=== PATIENT | female | born 1965 | race Caucasian/White ===

== ENCOUNTER 2022-02-02 07:01 | Emergency (ER) | payer SELFPAY ==
[~2022-02-02] VITALS: Ht 160 cm; Wt 50.0 kg
[2022-02-02 07:31] VITALS: BP 140/91
[2022-02-02 07:45] LABS: HEMATOCRIT 44.3 % (37.0-47.0); HEMOGLOBIN 14.3 g/dl (12.0-16.0); IMMATURE GRANULOCYTES 0.3 % (0.0-5.0); MEAN CORPUSCULAR HGB 33.6 pG CALC (26.0-32.0); MEAN CORPUSCULAR HGB CONC 32.3 g/dL CAL (32.0-36.0); NEUT# 5.13 thou/uL (2.00-7.15); RED BLOOD COUNT 4.25 mill/uL (4.20-5.60); RED CELL DISTRI WIDTH 12.7 % (11.5-15.5)
[2022-02-02 07:48] LABS: MEAN CELL VOLUME 104.2 fL CALC (80.0-100.0)
[2022-02-02 08:00] VITALS: BP 113/88
[2022-02-02] MEDS ORDERED: ANUCORT-HC25 M1 RE ×2 (08:52→11:16)
[2022-02-02 09:00] VITALS: BP 128/79
[2022-02-02 09:02] LABS: ALBUMIN 4.5 g/dL (3.2-5.0); ALKALINE PHOSPHATASE 81 u/l (38-126); BUN 10 mg/dL (7-17); BUN/CREATININE RATIO 25 (12-20 (CALC)); CHLORIDE 104 mmol/l (95-108); CREATININE 0.4 mg/dL (0.5-1.0); GFR FOR AFR.AMER. > 60 ML/MIN (>=60 (CALC)); GFR OTHER RACES > 60 ML/MIN (>=60 (CALC)); POTASSIUM 4.1 mmol/l (3.5-5.1); SGOT/AST 91 u/l (14-36); SODIUM 138 mmol/l (137-146); TOTAL PROTEIN 8.5 g/dL (6.3-8.2)
[2022-02-02 09:04] LABS: ANION GAP 14 (6-22 (CALC)); BILIRUBIN, TOTAL 0.4 mg/dL (0.0-1.4); CARBON DIOXIDE 24 mmol/l (22-30)
[2022-02-02 09:40] VITALS: BP 128/79
== END 2022-02-02 09:40 | disposition home or self-care (01) | DRG 395 ==
LOC: ED 07:01
PROVIDERS: Family Medicine
DX: K64.8 Other hemorrhoids (principal); M72.0 Palmar fascial fibromatosis [Dupuytren]; M41.9 Scoliosis, unspecified

== ENCOUNTER 2022-03-26 08:58 | Day surgery (SDC) | payer SELFPAY ==
[~2022-03-26] VITALS: Ht 160 cm; Wt 53.1 kg
[~2022-03-26 08:58] MED LIST: ANUCORT-HC25 M1 RE
[2022-03-26 11:55] VITALS: BP 142/85
== END 2022-03-26 12:23 | disposition home or self-care (01) | DRG 395 ==
LOC: ENDO 08:58
PROVIDERS: ATTEND Surgery
PROC: 0DBN8ZX Excision of Sigmoid Colon, Via Natural or Artificial Opening Endoscopic, Diagnostic (ICD-10-PCS; principal; 2022-03-26)
PROC: 3E0H8GC Introduction of Other Therapeutic Substance into Lower GI, Via Natural or Artificial Opening Endoscopic (ICD-10-PCS; 2022-03-26)
DX: D12.5 Benign neoplasm of sigmoid colon (principal); K64.2 Third degree hemorrhoids
CPT/HCPCS: C9290

== ENCOUNTER 2022-03-31 20:21 | Inpatient (IN) | payer SELFPAY ==
[2022-03-31] VITALS (13 sets, daily range): BP systolic 90–181; BP diastolic 48–98
[~2022-03-31] VITALS: Ht 160 cm; Wt 53.2 kg
[2022-03-31 20:57] LABS: IMMATURE GRANULOCYTES 0.4 % (0.0-5.0); MEAN CELL VOLUME 105.1 fL CALC (80.0-100.0); MEAN CORPUSCULAR HGB 34.8 pG CALC (26.0-32.0); MEAN CORPUSCULAR HGB CONC 33.1 g/dL CAL (32.0-36.0); NEUT# 4.16 thou/uL (2.00-7.15); RED BLOOD COUNT 2.93 mill/uL (4.20-5.60); RED CELL DISTRI WIDTH 13.6 % (11.5-15.5)
[2022-03-31 20:59] LABS: HEMATOCRIT 30.8 % (37.0-47.0); HEMOGLOBIN 10.2 g/dl (12.0-16.0)
[2022-03-31 21:08] LABS: URINE BILIRUBIN - DIPSTICK NEGATIVE (NEGATIVE); URINE BLOOD DIPSTICK NEGATIVE (NEGATIVE); URINE COLOR YELLOW; URINE GLUCOSE - DIPSTICK 100 mg/dL (NEGATIVE); URINE KETONE 40 mg/dL (NEGATIVE); URINE PROTEIN - DIPSTICK NEGATIVE (NEG-TRACE); URINE SPECIFIC GRAVITY >=1.030; URINE UROBILINOGEN - DIPSTICK 0.2 E.U./dL (0.2)
[2022-03-31 21:09] LABS: ALBUMIN 4.3 g/dL (3.2-5.0); ALKALINE PHOSPHATASE 120 u/l (38-126); BUN 5 mg/dL (7-17); BUN/CREATININE RATIO 11 (12-20 (CALC)); CHLORIDE 105 mmol/l (95-108); CREATININE 0.4 mg/dL (0.5-1.0); ETHYL ALCOHOL 0 mg/dl (0-30); GFR FOR AFR.AMER. > 60 ML/MIN (>=60 (CALC)); GFR OTHER RACES > 60 ML/MIN (>=60 (CALC)); MAGNESIUM 1.6 mg/dL (1.6-2.3); POTASSIUM 3.5 mmol/l (3.5-5.1); SGOT/AST 151 u/l (14-36); SODIUM 141 mmol/l (137-146); TOTAL PROTEIN 7.4 g/dL (6.3-8.2)
[2022-03-31 21:13] LABS: URINE LEUK ESTERASE SMALL (NEGATIVE); URINE NITRITE - DIPSTICK NEGATIVE (Negative)
[2022-03-31 21:19] LABS: ANION GAP 25 (6-22 (CALC)); BILIRUBIN, TOTAL 0.7 mg/dL (0.0-1.4); CARBON DIOXIDE 15 mmol/l (22-30)
[2022-03-31 21:21] LABS: URINE RBC 0-2 RBC/hpf (0-5); URINE SQUAMOUS EPITHELIAL CELL FEW EPI/hpf (0-FEW)
[2022-04-01] VITALS (93 sets, daily range): BP systolic 78–176; BP diastolic 54–116
[2022-04-01 05:44] LABS: HEMATOCRIT 29.2 % (37.0-47.0); HEMOGLOBIN 9.6 g/dl (12.0-16.0); IMMATURE GRANULOCYTES 0.5 % (0.0-5.0); MEAN CELL VOLUME 105.8 fL CALC (80.0-100.0); MEAN CORPUSCULAR HGB 34.8 pG CALC (26.0-32.0); MEAN CORPUSCULAR HGB CONC 32.9 g/dL CAL (32.0-36.0); NEUT# 6.83 thou/uL (2.00-7.15); RED BLOOD COUNT 2.76 mill/uL (4.20-5.60); RED CELL DISTRI WIDTH 13.4 % (11.5-15.5)
[2022-04-01 06:00] LABS: ALBUMIN 3.9 g/dL (3.2-5.0); ALKALINE PHOSPHATASE 103 u/l (38-126); ANION GAP 16 (6-22 (CALC)); BILIRUBIN, TOTAL 1.3 mg/dL (0.0-1.4); BUN 5 mg/dL (7-17); BUN/CREATININE RATIO 11 (12-20 (CALC)); CARBON DIOXIDE 19 mmol/l (22-30); CHLORIDE 109 mmol/l (95-108); CREATININE 0.4 mg/dL (0.5-1.0); GFR FOR AFR.AMER. > 60 ML/MIN (>=60 (CALC)); GFR OTHER RACES > 60 ML/MIN (>=60 (CALC)); POTASSIUM 2.9 mmol/l (3.5-5.1); SGOT/AST 400 u/l (14-36); SODIUM 141 mmol/l (137-146); TOTAL PROTEIN 6.9 g/dL (6.3-8.2)
[2022-04-01] MEDS ORDERED: TYLENOL PM PO (12:04)
[2022-04-01 15:12] LABS: ALBUMIN 4.2 g/dL (3.2-5.0); BILIRUBIN, TOTAL 1.8 mg/dL (0.0-1.4); BUN 4 mg/dL (7-17); BUN/CREATININE RATIO 9 (12-20 (CALC)); CREATININE 0.4 mg/dL (0.5-1.0); DIRECT BILIRUBIN 0.1 mg/dl (0.0-0.3); GFR FOR AFR.AMER. > 60 ML/MIN (>=60 (CALC)); GFR OTHER RACES > 60 ML/MIN (>=60 (CALC)); TOTAL PROTEIN 7.6 g/dL (6.3-8.2)
[2022-04-01 15:37] LABS: ALKALINE PHOSPHATASE 83 u/l (38-126)
[2022-04-01 15:40] LABS: CARBON DIOXIDE 18 mmol/l (22-30)
[2022-04-01 17:04] LABS: ANION GAP 17 (6-22 (CALC)); CHLORIDE 101 mmol/l (95-108); POTASSIUM 2.6 mmol/l (3.5-5.1); SODIUM 133 mmol/l (137-146)
[2022-04-01 17:05] LABS: SGOT/AST 913 u/l (14-36)
[2022-04-02] VITALS (23 sets, daily range): BP systolic 97–156; BP diastolic 59–102
[2022-04-02 05:13] LABS: HEMATOCRIT 29.5 % (37.0-47.0); IMMATURE GRANULOCYTES 0.2 % (0.0-5.0); MEAN CELL VOLUME 103.5 fL CALC (80.0-100.0); MEAN CORPUSCULAR HGB 35.1 pG CALC (26.0-32.0); MEAN CORPUSCULAR HGB CONC 33.9 g/dL CAL (32.0-36.0); NEUT# 7.54 thou/uL (2.00-7.15); RED BLOOD COUNT 2.85 mill/uL (4.20-5.60); RED CELL DISTRI WIDTH 13.4 % (11.5-15.5)
[2022-04-02 05:23] LABS: INTERNATIONAL NORMALIZED RATIO 2.9 RATIO (0.7-1.3); PROTHROMBIN TIME 27.4 SECONDS (9.0-12.5)
[2022-04-02 05:25] LABS: ALBUMIN 3.8 g/dL (3.2-5.0); ALKALINE PHOSPHATASE 118 u/l (38-126); BILIRUBIN, TOTAL 2.2 mg/dL (0.0-1.4); BUN 3 mg/dL (7-17); BUN/CREATININE RATIO 5 (12-20 (CALC)); CARBON DIOXIDE 17 mmol/l (22-30); CHLORIDE 109 mmol/l (95-108); CREATININE 0.5 mg/dL (0.5-1.0); GFR FOR AFR.AMER. > 60 ML/MIN (>=60 (CALC)); GFR OTHER RACES > 60 ML/MIN (>=60 (CALC)); SODIUM 137 mmol/l (137-146)
[2022-04-02 05:28] LABS: ALBUMIN 3.7 g/dL (3.2-5.0); ALKALINE PHOSPHATASE 119 u/l (38-126); BILIRUBIN, TOTAL 2.2 mg/dL (0.0-1.4); TOTAL PROTEIN 6.9 g/dL (6.3-8.2)
[2022-04-02 05:35] LABS: ANION GAP 14 (6-22 (CALC)); MAGNESIUM 2.2 mg/dL (1.6-2.3); POTASSIUM 3.2 mmol/l (3.5-5.1)
[2022-04-02 05:36] LABS: DIRECT BILIRUBIN 0.4 mg/dl (0.0-0.3)
[2022-04-02 05:54] LABS: SGOT/AST > 7500 u/l (14-36)
[2022-04-02 21:24] LABS: ALKALINE PHOSPHATASE 79 u/l (38-126); BILIRUBIN, TOTAL 1.6 mg/dL (0.0-1.4); BUN 5 mg/dL (7-17); BUN/CREATININE RATIO 13 (12-20 (CALC)); CHLORIDE 109 mmol/l (95-108); CREATININE 0.4 mg/dL (0.5-1.0); GFR FOR AFR.AMER. > 60 ML/MIN (>=60 (CALC)); GFR OTHER RACES > 60 ML/MIN (>=60 (CALC)); POTASSIUM 2.9 mmol/l (3.5-5.1); SODIUM 137 mmol/l (137-146)
[2022-04-02 21:30] LABS: INTERNATIONAL NORMALIZED RATIO 2.4 RATIO (0.7-1.3)
[2022-04-02 22:11] LABS: ALBUMIN 2.8 g/dL (3.2-5.0); ANION GAP 8 (6-22 (CALC)); CARBON DIOXIDE 23 mmol/l (22-30); SGOT/AST 9608 u/l (14-36); TOTAL PROTEIN 5.4 g/dL (6.3-8.2)
[2022-04-03] VITALS (24 sets, daily range): BP systolic 100–142; BP diastolic 60–100
[2022-04-03 05:36] LABS: HEMATOCRIT 26.3 % (37.0-47.0); HEMOGLOBIN 8.7 g/dl (12.0-16.0); MEAN CELL VOLUME 104.8 fL CALC (80.0-100.0); MEAN CORPUSCULAR HGB 34.7 pG CALC (26.0-32.0); MEAN CORPUSCULAR HGB CONC 33.1 g/dL CAL (32.0-36.0); RED BLOOD COUNT 2.51 mill/uL (4.20-5.60); RED CELL DISTRI WIDTH 13.4 % (11.5-15.5)
[2022-04-03 09:59] LABS: PROTHROMBIN TIME 19.4 SECONDS (9.0-12.5)
[2022-04-03 10:03] LABS: ALBUMIN 3.1 g/dL (3.2-5.0); ALKALINE PHOSPHATASE 115 u/l (38-126); ANION GAP 9 (6-22 (CALC)); BILIRUBIN, TOTAL 1.8 mg/dL (0.0-1.4); BUN 4 mg/dL (7-17); BUN/CREATININE RATIO 10 (12-20 (CALC)); CARBON DIOXIDE 22 mmol/l (22-30); CHLORIDE 109 mmol/l (95-108); CREATININE 0.4 mg/dL (0.5-1.0); GFR FOR AFR.AMER. > 60 ML/MIN (>=60 (CALC)); GFR OTHER RACES > 60 ML/MIN (>=60 (CALC)); POTASSIUM 2.9 mmol/l (3.5-5.1); SODIUM 138 mmol/l (137-146)
[2022-04-03 10:20] LABS: SGOT/AST 7153 u/l (14-36)
[2022-04-03 21:11] LABS: INTERNATIONAL NORMALIZED RATIO 1.8 RATIO (0.7-1.3); PROTHROMBIN TIME 17.3 SECONDS (9.0-12.5)
[2022-04-03 21:12] LABS: ALBUMIN 2.9 g/dL (3.2-5.0); ALKALINE PHOSPHATASE 112 u/l (38-126); BILIRUBIN, TOTAL 1.7 mg/dL (0.0-1.4); BUN 2 mg/dL (7-17); BUN/CREATININE RATIO 6 (12-20 (CALC)); CHLORIDE 109 mmol/l (95-108); CREATININE 0.4 mg/dL (0.5-1.0); GFR FOR AFR.AMER. > 60 ML/MIN (>=60 (CALC)); GFR OTHER RACES > 60 ML/MIN (>=60 (CALC)); POTASSIUM 2.8 mmol/l (3.5-5.1); SODIUM 140 mmol/l (137-146); TOTAL PROTEIN 5.8 g/dL (6.3-8.2)
[2022-04-03 21:31] LABS: ANION GAP 7 (6-22 (CALC)); CARBON DIOXIDE 27 mmol/l (22-30); SGOT/AST 3507 u/l (14-36)
[2022-04-04] VITALS (22 sets, daily range): BP systolic 93–119; BP diastolic 50–94
[2022-04-04 05:01] LABS: HEMATOCRIT 25.2 % (37.0-47.0); HEMOGLOBIN 8.5 g/dl (12.0-16.0); IMMATURE GRANULOCYTES 0.3 % (0.0-5.0); MEAN CELL VOLUME 104.1 fL CALC (80.0-100.0); MEAN CORPUSCULAR HGB 35.1 pG CALC (26.0-32.0); MEAN CORPUSCULAR HGB CONC 33.7 g/dL CAL (32.0-36.0); NEUT# 2.33 thou/uL (2.00-7.15); RED BLOOD COUNT 2.42 mill/uL (4.20-5.60); RED CELL DISTRI WIDTH 13.2 % (11.5-15.5)
[2022-04-04 05:14] LABS: INTERNATIONAL NORMALIZED RATIO 1.7 RATIO (0.7-1.3); PROTHROMBIN TIME 16.6 SECONDS (9.0-12.5)
[2022-04-04 09:31] LABS: INTERNATIONAL NORMALIZED RATIO 1.6 RATIO (0.7-1.3); PROTHROMBIN TIME 15.4 SECONDS (9.0-12.5)
[2022-04-04 10:03] LABS: ALBUMIN 2.8 g/dL (3.2-5.0); ALKALINE PHOSPHATASE 129 u/l (38-126); BUN 2 mg/dL (7-17); BUN/CREATININE RATIO 6 (12-20 (CALC)); CARBON DIOXIDE 27 mmol/l (22-30); CHLORIDE 108 mmol/l (95-108); CREATININE 0.4 mg/dL (0.5-1.0); GFR FOR AFR.AMER. > 60 ML/MIN (>=60 (CALC)); GFR OTHER RACES > 60 ML/MIN (>=60 (CALC)); SODIUM 139 mmol/l (137-146); TOTAL PROTEIN 5.5 g/dL (6.3-8.2)
[2022-04-04 11:15] LABS: ANION GAP 8 (6-22 (CALC)); POTASSIUM 3.8 mmol/l (3.5-5.1); SGOT/AST 1970 u/l (14-36)
[2022-04-04 17:13] LABS: ALBUMIN 2.7 g/dL (3.2-5.0); ALKALINE PHOSPHATASE 108 u/l (38-126); ANION GAP 8 (6-22 (CALC)); BILIRUBIN, TOTAL 1.9 mg/dL (0.0-1.4); BUN 2 mg/dL (7-17); BUN/CREATININE RATIO 6 (12-20 (CALC)); CARBON DIOXIDE 27 mmol/l (22-30); CHLORIDE 106 mmol/l (95-108); CREATININE 0.4 mg/dL (0.5-1.0); GFR FOR AFR.AMER. > 60 ML/MIN (>=60 (CALC)); GFR OTHER RACES > 60 ML/MIN (>=60 (CALC)); POTASSIUM 3.2 mmol/l (3.5-5.1); SODIUM 139 mmol/l (137-146); TOTAL PROTEIN 5.4 g/dL (6.3-8.2)
[2022-04-04 17:20] LABS: SGOT/AST 1307 u/l (14-36)
[2022-04-05 05:43] VITALS: BP 102/61
[2022-04-05 05:52] LABS: ALBUMIN 2.6 g/dL (3.2-5.0); ALKALINE PHOSPHATASE 114 u/l (38-126); ANION GAP 9 (6-22 (CALC)); BILIRUBIN, TOTAL 1.7 mg/dL (0.0-1.4); BUN 2 mg/dL (7-17); BUN/CREATININE RATIO 6 (12-20 (CALC)); CARBON DIOXIDE 25 mmol/l (22-30); CHLORIDE 107 mmol/l (95-108); CREATININE 0.4 mg/dL (0.5-1.0); GFR FOR AFR.AMER. > 60 ML/MIN (>=60 (CALC)); GFR OTHER RACES > 60 ML/MIN (>=60 (CALC)); POTASSIUM 2.9 mmol/l (3.5-5.1); SGOT/AST 726 u/l (14-36); SODIUM 139 mmol/l (137-146); TOTAL PROTEIN 5.2 g/dL (6.3-8.2)
[2022-04-05 06:11] VITALS: BP 98/64
[2022-04-05 10:55] VITALS: BP 90/66
[2022-04-05 15:37] VITALS: BP 106/64
[2022-04-05 17:52] LABS: ALBUMIN 2.8 g/dL (3.2-5.0); ALKALINE PHOSPHATASE 148 u/l (38-126); BILIRUBIN, TOTAL 1.6 mg/dL (0.0-1.4); BUN 3 mg/dL (7-17); BUN/CREATININE RATIO 7 (12-20 (CALC)); CARBON DIOXIDE 26 mmol/l (22-30); CHLORIDE 107 mmol/l (95-108); CREATININE 0.4 mg/dL (0.5-1.0); GFR FOR AFR.AMER. > 60 ML/MIN (>=60 (CALC)); GFR OTHER RACES > 60 ML/MIN (>=60 (CALC)); SGOT/AST 464 u/l (14-36); SODIUM 138 mmol/l (137-146); TOTAL PROTEIN 5.6 g/dL (6.3-8.2)
[2022-04-05 18:02] LABS: ANION GAP 9 (6-22 (CALC)); POTASSIUM 3.8 mmol/l (3.5-5.1)
[2022-04-05 18:59] VITALS: BP 117/67
[2022-04-05 23:51] VITALS: BP 92/51
[2022-04-06 04:08] VITALS: BP 94/53
[2022-04-06 05:32] LABS: ALBUMIN 2.5 g/dL (3.2-5.0); ALKALINE PHOSPHATASE 136 u/l (38-126); ANION GAP 8 (6-22 (CALC)); BILIRUBIN, TOTAL 1.5 mg/dL (0.0-1.4); BUN 6 mg/dL (7-17); BUN/CREATININE RATIO 14 (12-20 (CALC)); CARBON DIOXIDE 24 mmol/l (22-30); CHLORIDE 110 mmol/l (95-108); CREATININE 0.4 mg/dL (0.5-1.0); GFR FOR AFR.AMER. > 60 ML/MIN (>=60 (CALC)); GFR OTHER RACES > 60 ML/MIN (>=60 (CALC)); POTASSIUM 4.1 mmol/l (3.5-5.1); SGOT/AST 275 u/l (14-36); SODIUM 138 mmol/l (137-146); TOTAL PROTEIN 5.3 g/dL (6.3-8.2)
[2022-04-06 06:27] VITALS: BP 102/58
[2022-04-06 12:21] VITALS: BP 108/66
[2022-04-06 16:39] VITALS: BP 113/63
[2022-04-06 17:44] LABS: ALKALINE PHOSPHATASE 150 u/l (38-126); ANION GAP 9 (6-22 (CALC)); BILIRUBIN, TOTAL 1.2 mg/dL (0.0-1.4); BUN 6 mg/dL (7-17); BUN/CREATININE RATIO 12 (12-20 (CALC)); CARBON DIOXIDE 22 mmol/l (22-30); CHLORIDE 110 mmol/l (95-108); CREATININE 0.4 mg/dL (0.5-1.0); GFR FOR AFR.AMER. > 60 ML/MIN (>=60 (CALC)); GFR OTHER RACES > 60 ML/MIN (>=60 (CALC)); SGOT/AST 210 u/l (14-36); SODIUM 137 mmol/l (137-146); TOTAL PROTEIN 6.3 g/dL (6.3-8.2)
[2022-04-06 20:44] VITALS: BP 99/62
[2022-04-07 05:15] VITALS: BP 107/68
[2022-04-07 05:51] LABS: ALBUMIN 2.9 g/dL (3.2-5.0); ALKALINE PHOSPHATASE 140 u/l (38-126); ANION GAP 10 (6-22 (CALC)); BUN 5 mg/dL (7-17); BUN/CREATININE RATIO 11 (12-20 (CALC)); CARBON DIOXIDE 26 mmol/l (22-30); CHLORIDE 107 mmol/l (95-108); CREATININE 0.5 mg/dL (0.5-1.0); GFR FOR AFR.AMER. > 60 ML/MIN (>=60 (CALC)); GFR OTHER RACES > 60 ML/MIN (>=60 (CALC)); MAGNESIUM 1.9 mg/dL (1.6-2.3); POTASSIUM 3.4 mmol/l (3.5-5.1); SGOT/AST 150 u/l (14-36); SODIUM 139 mmol/l (137-146); TOTAL PROTEIN 6.1 g/dL (6.3-8.2)
[2022-04-07 06:12] VITALS: BP 113/70
[2022-04-07 11:44] VITALS: BP 110/68
[2022-04-07 16:21] VITALS: BP 122/75
[2022-04-07 19:04] VITALS: BP 108/57
[2022-04-08 05:05] VITALS: BP 111/69
[2022-04-08 06:16] LABS: ALBUMIN 3.1 g/dL (3.2-5.0); ALKALINE PHOSPHATASE 134 u/l (38-126); ANION GAP 8 (6-22 (CALC)); BUN 6 mg/dL (7-17); BUN/CREATININE RATIO 12 (12-20 (CALC)); CARBON DIOXIDE 25 mmol/l (22-30); CHLORIDE 110 mmol/l (95-108); CREATININE 0.5 mg/dL (0.5-1.0); GFR FOR AFR.AMER. > 60 ML/MIN (>=60 (CALC)); GFR OTHER RACES > 60 ML/MIN (>=60 (CALC)); POTASSIUM 3.3 mmol/l (3.5-5.1); SGOT/AST 114 u/l (14-36); SODIUM 140 mmol/l (137-146); TOTAL PROTEIN 6.4 g/dL (6.3-8.2)
[2022-04-08 07:12] VITALS: BP 123/66
[2022-04-08 10:45] LABS: HEMATOCRIT 30.2 % (37.0-47.0); HEMOGLOBIN 9.8 g/dl (12.0-16.0); MEAN CELL VOLUME 107.1 fL CALC (80.0-100.0); MEAN CORPUSCULAR HGB 34.8 pG CALC (26.0-32.0); MEAN CORPUSCULAR HGB CONC 32.5 g/dL CAL (32.0-36.0); RED BLOOD COUNT 2.82 mill/uL (4.20-5.60); RED CELL DISTRI WIDTH 13.8 % (11.5-15.5)
[2022-04-08 16:37] VITALS: BP 123/73
[2022-04-08 18:47] VITALS: BP 102/59
[2022-04-08 21:54] LABS: HEMOGLOBIN 9.2 g/dl (12.0-16.0)
[2022-04-08 23:43] VITALS: BP 101/54
[2022-04-09 04:15] VITALS: BP 108/62
[2022-04-09 05:33] LABS: HEMATOCRIT 27.6 % (37.0-47.0); HEMOGLOBIN 9.1 g/dl (12.0-16.0); MEAN CELL VOLUME 105.7 fL CALC (80.0-100.0); MEAN CORPUSCULAR HGB 34.9 pG CALC (26.0-32.0); RED BLOOD COUNT 2.61 mill/uL (4.20-5.60); RED CELL DISTRI WIDTH 13.9 % (11.5-15.5)
[2022-04-09 06:02] LABS: ALKALINE PHOSPHATASE 116 u/l (38-126); ANION GAP 10 (6-22 (CALC)); BILIRUBIN, TOTAL 1.1 mg/dL (0.0-1.4); BUN 5 mg/dL (7-17); BUN/CREATININE RATIO 10 (12-20 (CALC)); CARBON DIOXIDE 23 mmol/l (22-30); CHLORIDE 109 mmol/l (95-108); CREATININE 0.5 mg/dL (0.5-1.0); GFR FOR AFR.AMER. > 60 ML/MIN (>=60 (CALC)); GFR OTHER RACES > 60 ML/MIN (>=60 (CALC)); MAGNESIUM 1.9 mg/dL (1.6-2.3); POTASSIUM 3.8 mmol/l (3.5-5.1); SGOT/AST 95 u/l (14-36); SODIUM 139 mmol/l (137-146); TOTAL PROTEIN 6.4 g/dL (6.3-8.2)
[2022-04-09 06:39] VITALS: BP 97/63
[2022-04-09 10:46] VITALS: BP 105/59
[2022-04-09] MEDS ORDERED: PANTOPRAZOLE SO40 M1 PO (11:18)
[2022-04-09] MEDS ORDERED: QUETIAPINE FUMA25 MG PO (11:18)
== END 2022-04-09 11:40 | disposition home or self-care (01) | DRG 917 ==
LOC: ED 20:21 → ICU 21:35 → MS2 04-04 17:25
PROVIDERS: Family Medicine; Internal Medicine; ADMIT Internal Medicine; ATTEND Internal Medicine
PROC: 0T9B70Z Drainage of Bladder with Drainage Device, Via Natural or Artificial Opening (ICD-10-PCS; principal; 2022-04-02)
DX: T39.1X2A Poisoning by 4-Aminophenol derivatives, intentional self-harm, initial encounter (principal); G92.8 Other toxic encephalopathy; E87.2 Acidosis; F10.231 Alcohol dependence with withdrawal delirium; K92.1 Melena; F31.81 Bipolar II disorder; K71.8 Toxic liver disease with other disorders of liver; T45.0X2A Poisoning by antiallergic and antiemetic drugs, intentional self-harm, initial encounter; E87.6 Hypokalemia; F41.9 Anxiety disorder, unspecified; Y92.009 Unspecified place in unspecified non-institutional (private) residence as the place of occurrence of the external cause; Z62.810 Personal history of physical and sexual abuse in childhood; Z86.010 Personal history of colon polyps; Z20.822 Contact with and (suspected) exposure to COVID-19
CPT/HCPCS: J1650; J2060; J3475

== ENCOUNTER 2022-04-28 08:34 | Day surgery (SDC) | payer SELFPAY ==
[~2022-04-28] VITALS: Ht 160 cm; Wt 53.1 kg
[~2022-04-28 08:34] MED LIST changes: +PANTOPRAZOLE SO40 M1 PO; +QUETIAPINE FUMA25 MG PO; +TYLENOL PM PO
[2022-04-28] MEDS ORDERED: PERCOCET 5/321 COMBO PO (11:37)
[2022-04-28] MEDS ORDERED: TRAMADOL HCL50 MG PO (12:13)
[2022-04-28 13:03] VITALS: BP 137/79
== END 2022-04-28 12:41 | disposition home or self-care (01) | DRG 349 ==
LOC: ORM 08:34
PROVIDERS: ATTEND Surgery
PROC: 0DJD8ZZ Inspection of Lower Intestinal Tract, Via Natural or Artificial Opening Endoscopic (ICD-10-PCS; principal; 2022-04-28)
PROC: 06BY3ZC Excision of Hemorrhoidal Plexus, Percutaneous Approach (ICD-10-PCS; 2022-04-28)
DX: D12.6 Benign neoplasm of colon, unspecified (principal); K64.8 Other hemorrhoids
CPT/HCPCS: C9290

== ENCOUNTER 2024-05-03 11:54 | Emergency (ER) | payer OTHER ==
[~2024-05-03] VITALS: Ht 160 cm; Wt 53.0 kg
[~2024-05-03 11:54] MED LIST changes: +PERCOCET 5/321 COMBO PO; +TRAMADOL HCL50 MG PO
[2024-05-03 12:02] VITALS: BP 123/85
[2024-05-03 12:15] VITALS: BP 124/66
[2024-05-03 12:30] VITALS: BP 128/74
[2024-05-03 12:45] VITALS: BP 123/76
[2024-05-03 12:51] LABS: BASO% 1.1 % (0-3); EOS% 0.9 % (0-8); HEMATOCRIT 26.3 % (37.0-47.0); IMMATURE GRANULOCYTES 0.1 % (0.0-5.0); LYMPH% 17.7 % (15-41); MEAN CORPUSCULAR HGB 25.6 pG CALC (26.0-32.0); MEAN CORPUSCULAR HGB CONC 30.4 g/dL CAL (32.0-36.0); MONO% 6.5 % (2-13); NEUT# 6.23 thou/uL (2.00-7.15); NEUT% 73.7 % (42-76); RED BLOOD COUNT 3.12 mill/uL (4.20-5.60); RED CELL DISTRI WIDTH 18.6 % (11.5-15.5)
[2024-05-03 12:52] LABS: MEAN CELL VOLUME 84.3 fL CALC (80.0-100.0)
[2024-05-03 13:00] VITALS: BP 132/84
[2024-05-03 13:01] LABS: INTERNATIONAL NORMALIZED RATIO 1.3 RATIO (0.7-1.3)
[2024-05-03 13:02] LABS: PROTHROMBIN TIME 11.9 SECONDS (9.0-12.5)
[2024-05-03 13:52] VITALS: BP 132/84
== END 2024-05-03 14:03 | disposition home or self-care (01) | DRG 375 ==
LOC: ED 11:54
PROVIDERS: Nurse Practitioner Adult Health
PROC: 0W9G3ZZ Drainage of Peritoneal Cavity, Percutaneous Approach (ICD-10-PCS; principal; 2024-05-03)
DX: C19 Malignant neoplasm of rectosigmoid junction (principal); R18.0 Malignant ascites; Z93.3 Colostomy status

== ENCOUNTER 2024-05-09 10:05 | Emergency (ER) | payer OTHER ==
[2024-05-09] VITALS (26 sets, daily range): BP systolic 108–139; BP diastolic 61–94
[~2024-05-09] VITALS: Ht 160 cm; Wt 52.1 kg
[2024-05-09 10:35] LABS: BASO% 0.5 % (0-3); HEMATOCRIT 25.9 % (37.0-47.0); HEMOGLOBIN 7.8 g/dl (12.0-16.0); IMMATURE GRANULOCYTES 0.2 % (0.0-5.0); LYMPH% 19.9 % (15-41); MEAN CELL VOLUME 84.6 fL CALC (80.0-100.0); MEAN CORPUSCULAR HGB 25.5 pG CALC (26.0-32.0); MEAN CORPUSCULAR HGB CONC 30.1 g/dL CAL (32.0-36.0); MONO% 1.4 % (2-13); NEUT# 4.42 thou/uL (2.00-7.15); RED BLOOD COUNT 3.06 mill/uL (4.20-5.60); RED CELL DISTRI WIDTH 18.5 % (11.5-15.5)
[2024-05-09 10:48] LABS: ALBUMIN 2.7 g/dL (3.2-5.0); BILIRUBIN, TOTAL 0.4 mg/dL (0.02-1.3); CREATININE 0.4 mg/dL (0.5-1.0); POTASSIUM 3.3 mmol/l (3.5-5.1)
[2024-05-09] MEDS ORDERED: SODIUM CHLORIDE 0.9% 500 ML IV ONE (10:50)
[2024-05-09] MEDS ORDERED: FUROSEMIDE 40 MG/4 ML SDV IV ONE (14:20)
== END 2024-05-09 14:41 | disposition home or self-care (01) | DRG 812 ==
LOC: ED 10:05
PROVIDERS: Family Medicine
PROC: 30233N1 Transfusion of Nonautologous Red Blood Cells into Peripheral Vein, Percutaneous Approach (ICD-10-PCS; principal; 2024-05-09)
DX: D64.81 Anemia due to antineoplastic chemotherapy (principal); C18.9 Malignant neoplasm of colon, unspecified; C78.7 Secondary malignant neoplasm of liver and intrahepatic bile duct; C20 Malignant neoplasm of rectum; K62.5 Hemorrhage of anus and rectum; T45.1X5A Adverse effect of antineoplastic and immunosuppressive drugs, initial encounter; Z01.818 Encounter for other preprocedural examination
CPT/HCPCS: P9016